=== PATIENT | male | born 2005 | race Caucasian/White ===

== ENCOUNTER 2025-06-05 13:00 | Outpatient (AMB) | payer OTHER, SELFPAY ==
--- NOTE | 2025-06-05 13:10 | A.OFFPC_ITS ---
Vital Signs 06/05/25 13:22 Height 5 ft 9 in Weight 304 lb BMI 44.9 BP 146/68 H Blood Pressure Location Rt brachial Position Sitting Respiration 18 Pulse 94 Pulse Source Pulse Oximeter Temp 97.3 F Temp Source Temporal Artery Scan Pulse Oximetry (%) 98 Oxygen Delivery Method Room Air Intake Visit Reasons: establish care Second Rigger Required: No Accompanied by: Self / Same As Patient Allergies permethrin Allergy (Severe, Verified 06/05/25 13:37) Hives cat dander (cats) Allergy (Mild, Verified 06/05/25 13:37) Itching amoxicillin Adverse Reaction (Severe, Verified 06/05/25 13:37) Swelling loratadine (From Claritin) Adverse Reaction (Mild, Verified 06/05/25 13:37) Swelling trees Adverse Reaction (Mild, Uncoded 06/05/25 13:37) Itching Medication List - Last Reconciled 06/05/25 by ISIDORO Lal cetirizine (Zyrtec) 10 mg PO DAILY PRN Tobacco use date assessed: 06/05/25 Dental Screening Dental Screen Date: 06/05/25 Did you have a dental visit in the last 12 months?: Yes Did you have a dental problem in the last 6 months where you did not have access to dental care?: No Was dental information given to patient?: Patient has dentist HPI establish care HPI Details Previous PCP:[facility] Last visit:Within the last six months Last PE: About a year ago Specialist: no OBGYN:n/a Past medical history: Medications: Family HX: Problem: The patient is a 19-year-old male presenting to establish care with a new primary care physician after 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 His last visit with his data center solutions architect was within the last six months, his last physical was over a year ago, and his last blood work was a few years ago. The patient reports developing congestion and postnasal drip with green sputum for the last 3-4 days. These symptoms started a few days after he returned from a cruise about a week ago. He denies any associated sinus pain. Past medical history is significant for asthma as a child, though he has not had issues in a long time. He denies any other known medical history and does not see any specialists. He has known allergies to amoxicillin and permethrin. The patient cannot recall any significant family medical history but plans to ask his parents. [facility] Medical History (Updated 06/06/25 @ 12:13 by ISIDORO Lal) History of asthma Social History Alcohol intake: never Patient Tobacco Use Status: Never used Tobacco e-Cigarette/Vaping Use: Never Used Current occupational status: employed Current occupation: [employer] Cognitive needs: No Hearing needs: No Vision needs: Yes Questionnaire PHQ-9 Over the last 2 weeks, how often have you been bothered by any of the following problems? 1. Little interest or pleasure in doing things: not at all 2. Feeling down, depressed, or hopeless: not at all 3. Trouble falling or staying asleep, or sleeping too much: not at all 4. Feeling tired or having little energy: not at all 5. Poor appetite or overeating: not at all 6. Feeling bad about yourself - or that you are a failure or have let yourself or your family down: not at all 7. Trouble concentrating on things, such as reading the newspaper or watching television: not at all 8. Moving or speaking so slowly that other people could have noticed. Or the opposite - being so fidgety or restless that you have been moving around a lot more than usual: not at all 9. Thoughts that you would be better off or of hurting yourself in some way: not at all Total score: 0 Source: Developed by Drs. Azam Oconnell, Shannon King, J Luis Wong and colleagues, with an educational miracle from [employer]. Thrive Questionnaire I am a: Patient What is your living situation today?: I have a steady place to live Within the past 12 months, did the food you bought not last and you didn't have the money to get more?: Never true Within the past 12 months, did you worry whether your food would run out before you got money to buy more?: Never true Do you have trouble paying for medicines?: No Do you have trouble getting transportation to medical appointments?: No Do you have trouble paying your heating and electricity bill?: No Do you have trouble taking care of your child, family member or friend?: No Do you have trouble with day-to-day activities such as bathing, preparing meals, shopping, managing finances, etc.?: No Are you currently unemployed and looking for a job?: No Are you interested in more education?: Yes Please select the resources that you would like help with: None Currently or been in a relationship where the following occur: No concerns reported THRIVE Score: 0 AUDIT C Alcohol Use Questionnaire (AUDIT-C) 1. How often do you have a drink containing alcohol?: Never Total Score: 0 LASHAY-7 AMB Questionnaire LASAHY-7 Feeling nervous, anxious, or on edge: 0 = Not at all Not being able to stop or control worryin = Not at all Worrying too much about different things: 0 = Not at all Trouble relaxin = Not at all Being so restless that it is hard to sit still: 0 = Not at all Becoming easily annoyed or irritable: 0 = Not at all Feeling afraid as if something awful might happen: 0 = Not at all Total LASHAY-7 score (0-4 normal; 5-9 mild; 10-14 moderate; 15-21 severe): 0 Source: Developed by Drs. Azam Oconnell, Shannon King, J Luis Wong and colleagues, with an educational miracle from [employer]. Review of Systems Const Denies headache(s) Eyes Denies loss of vision ENT Denies vertigo, Denies dizziness, Denies headache(s), Reports nasal congestion, Reports nasal discharge (greenish) and Denies sore throat Card Denies chest pain, Denies leg edema and Denies lightheadedness Resp Denies cough, Denies hemoptysis and Denies wheezing GI Denies abdominal pain, Denies melena, Denies constipation, Denies diarrhea and Denies vomiting Denies dysuria, Denies urinary frequency and Denies urinary urgency Musc Denies arthralgias, Denies joint swelling, Denies numbness and Denies tingling Neuro Denies Abnormal speech present, Denies behavioral changes, Denies vertigo, Denies dizziness, Denies headache(s), Denies loss of vision, Denies memory loss, Denies numbness and Denies tingling Psych Denies anxiety, Denies behavioral changes, Denies depression, Denies memory loss and Denies panic attacks Mike/Lymph Denies easy bleeding and Denies easy bruising Aller/Immun Denies wheezing Physical exam (Primary Care) Vital Signs: Last Vital Signs Temp 97.3 F 06/05/25 13:22 Pulse 94 06/05/25 13:22 Resp 18 06/05/25 13:22 BP 146/68 H 06/05/25 13:22 Pulse Ox 98 06/05/25 13:22 Oxygen Delivery Method Room Air 06/05/25 13:22 BMI result Body Mass Index 44.9 Tobacco/Smoking Status: Tobacco use Status Tobacco use date assessed 06/05/25 06/05/25 13:36 Patient Tobacco Use Status Never used Tobacco 06/05/25 13:36 e-Cigarette/Vaping Use Never Used 06/05/25 13:36 PHQ-9: PHQ-9 Score PHQ-9: Total score 0 06/05/25 13:43 Currently or been in a relationship where the following occur: No concerns reported Const General: healthy appearing, no acute distress, alert and awake Nutritional Appearance: well nourished and obese Orientation/consciousness: oriented to person, oriented to place and oriented to time HENMT Ears: TM's normal bilaterally General nose exam: Abnormal mucous membranes and turbinates present boggy and erythematous and Nasal discharge present purulent on the left Mouth: tongue abnormal geographic Eyes Conjunctivae: conjunctivae normal Sclerae: sclerae normal Pupils: Equal, round and reactive pupils present Neck Neck: Yes no lymphadenopathy and Yes no JVD Thyroid: Thyroid normal Carotids: no bruits Resp Effort & Inspection: normal respiratory effort and not tachypneic Auscultation: no crackles, no rales, no rhonchi and no wheezes Cardio Rate: regular rate Rhythm: regular rhythm Heart sounds: no murmurs and normal S1 and S2 GI Inspection: Yes obesity Palpation (GI): Soft to palpation, nontender, no hepatomegaly and no splenomegaly Auscultation: normal bowel sounds General: Yes no CVA tenderness Back/Spine/Pelvis Back: no CVA tenderness Skin General skin exam: no rashes or lesions noted and dry skin Neuro General: oriented to person, oriented to place and oriented to time Cranial nerves: Yes Equal, round and reactive pupils present Speech: No Abnormal speech present Gait exam (Neuro): Normal gait present Motor exam (neuro): no tremor noted Extrem Right upper extremity: full ROM Left upper extremity: full ROM Right lower extremity: full ROM; no edema Left lower extremity: full ROM; no edema Psych Mental Status: mental status grossly normal Speech and movement: Normal speech and movement present Affect: normal affect Attitude: cooperative Thought process: Normal thought process present Coding Level of Care Code New Pt Level 4 (64416) Diagnoses Encounter for medical examination to establish care Z00.00 Rhinosinusitis J31.0; J32.9 Morbid obesity E66.01 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 Fasting lab work, including electrolytes, kidney and liver function, cholesterol, and b lood sugar, will be ordered. A follow-up appointment will be scheduled for a complete physical examination and to review the lab results. The patient will need to fast for 8 to 12 hours prior to the blood draw. (2) Rhinosinusitis: Code(s): J31.0 - Chronic rhinitis; J32.9 - Chronic sinusitis, unspecified Category: Medical Plan: The patient's report of green sputum for 3-4 days and physical exam findings of inflamed sinus passages and post-nasal drip are indicative of a bacterial sinus infection. Due to a stated allergy to amoxicillin, a course of azithromycin will be prescribed. The dosing will be 500 mg on the first day, followed by 250 mg for the subsequent days. (3) Morbid obesity: Code(s): E66.01 - Morbid (severe) obesity due to excess calories Category: Medical Plan: Encouraged to exercise for at least 30 minutes a day/5 days a week Healthy eating discussed. Encouraged to eat fruits/vegetables, protein- fish/baked chicken, and to avoid salty/fried foods, sweets, caffeine and carbohydrates. 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 Since antibiotics can cause or exacerbate thrush, treatment will be deferred until after the antibiotic course for his sinus infection is complete. The condition will be re-evaluated at the follow-up visit, at which time an antifungal swish and swallow medication may be considered if the condition has not resolved. Orders: Orders Complete Blood Count Auto Diff 06/05/25. - Encounter for general adult medical examination without abnormal findings Comprehensive Sunset. Panel Fast 06/05/25. - Encounter for general adult medical examination without abnormal findings Vitamin D 25-OH Total 06/05/25. - Encounter for general adult medical examination without abnormal findings UA CC w/rflx Micro + Cult 06/05/25. - Encounter for general adult medical examination without abnormal findings TSH reflex Free T4 06/05/25. - Encounter for general adult medical examination without abnormal findings Lipid Panel 06/05/25. - Encounter for general adult medical examination without abnormal findings Medications: New azithromycin For 250 mg dose pack: take 500 mg today (day 1), then 250 mg for 4 days (days 2-5) PO 6 tabs 0RF
[2025-06-05 13:22] VITALS: BP 146/68; PULSE 94; RESP 18; TEMP 36.3; O2SAT 98; BMI 44.9
--- OUTSIDE RECORDS SUMMARY | 2025-06-05 16:29 | XMS_ITS | Clinical Summary ---
Author Organization [facility] Address [address] [place] [id number] Phone Care Team Providers Care Towerman Name Role Phone Billy Barboza MD Primary Care Provider [phone] Allergies Active Allergy Reactions Criticality Noted Date Comments Amoxicillin Swelling Environmental 06/03/2017 Dust mites, Garrison tree, cats- tested positive for skin test Permethrin Rash Low Medications cetirizine (ZYRTEC ALLERGY) 10 MG tabletIndicatio ns:Urticaria Take 1 tablet (10 mg total) by mouth nightly as needed for allergies. 30 tablet 1 06/03/2017 Active escitalopram 10 MG tabletIndicatio ns:Current severe episode of major depressive disorder without psychotic features without prior episode TAKE 1 TABLET(10 MG) BY MOUTH EVERY MORNING 90 tablet 04/07/2025 Active Active Problems Problem Noted Date Diagnosed Date Current severe episode of ma renetta depressive disorder without psychotic features without prior episode 12/12/2024 Overview (01/23/2025): 12/01/2024 9:49 AM PHQ9 Screen(s) 12/01/24 startt escitalopram 5 -> 10 mg 12/22/24 good tolerance and some early response to escitalopram No SI Continue at 10 mg Assessment & Plan (01/17/2025 9:55 AM EDT): Doing well on escitalopram 10 mg, feels mood is much better. No side effects or SI. Sleeping well, and somewhat more than before. No change in appetite. Sweating increase 12/12/2024 Vitamin D deficiency 04/28/2019 Overview (04/28/2019): Likely secondary to dietary intake and lack of activity outdoors. Will supplement with 2000U daily x 3 months. Would like to recheck ~08/2019. Assessment & Plan (11/13/2020 1:58 PM EDT): Takes supplement during winter months. Advised to continue unless he gets 20- 30min of outdoor time daily Assessment & Plan (04/28/2019 4:27 PM EDT): Likely secondary to dietary intake and lack of activity outdoors. Will supplement with 2000U daily x 3 months. Would like to recheck ~08/2019. Attention deficit hyperactivity disorder, combin ed type 06/19/2015 Assessment & Plan (05/19/2022 11:16 AM EDT): He feels he does not need tx. Assessment & Plan (11/13/2020 1:55 PM EDT): Still has some attention problems, executive function problems. Not on medication BMI 40.0-44.9, adult 06/19/2015 Overview (05/10/2023): IMO LOAD Assessment & Plan (04/28/2019 4:23 PM EDT): Discussed diet and exercise. Assessment & Plan (08/18/2018 11:33 AM EST): Will check BMI labs today as we are doing blood draw for other reasons. Environmental and seasonal allergies 05/02/2015 Assessment & Plan (09/09/2021 4:14 PM EST): Ongoing congestion likely due to cat dander and/or dust mites in bedroom Recommend the following-- Allergy-- environmental controls Allergy-proof bedroom Remove carpet if possible or vacuum twice/week if wall to wall. No humidifiers. Pillows, comforter and stuffed animals into hot dryer once/week for 20 min to kill dust mites. Aller-ease covers for mattress and pillow. Keep pets out of bedroom. Trial of Flonase 1 spray to each nostril daily at night Assessment & Plan (11/13/2020 1:58 PM EDT): Uses cetirizine prn Encounters Date Type Department Care Team Description 04/07/2025 Refill [facility] - [address], [address] [place] [address] Billy Barboza MD Current severe episode of major depressive disorder without psychotic features without prior episode from Last 3 Months Immunizations Immunization Administration Dates Next Due DTaP 12/11/2008,06/02/2006 DTaP / Hep B / IPV 06/03/2005,04/01/2005, 005 HPV Vaccine 9 Valent 12/17/2017,12/16/2016 Hep A, ped/adol 11/13/2020,04/28/2019 Hep B, ped/adol 2004 Hib (PRP-T) 03/03/2006, 5,04/01/2005,01/28 IPV 12/11/2008 Influenza 04/30/2009, 7,06/02/2006,07/06,06/03/2005 Influenza, injectable, quadr ivalent, preservative free 05/13/2022,05/25/2020,04/28/2019,06/19,05/18/2014 Influenza, injectable, trivalent 06/01/2012,12/0 10/2009,06/11/2010 MMR 12/12/2009,03/03/2006 Meningococcal Conj (Menactra) MCV4P 04/18/2021,0 12/16/2016 Pneumococcal Conjugate 03/03/2006,2004,04/01/2005,01/28 Pneumococcal Conjugate 13-Valent 12/12/2009 Pneumococcal Polysaccharide 10/24/2008 Tdap 12/16/2016 Varicella 12/12/2009,11/26/2005 Family History Relation Name Status Comments Father Alive Father: ADD, de pression, substance abuse Mother Alive Mother: asthma, depression, anxiety Other 1 Alive Other 2 Alive ADD, depression , substance abuse Other 3 Alive asthma, depress ion, anxiety Social History Tobacco Use Types Packs/Day Years Used Date Smoking Tobacco: Never Smokeless Tobacco: Never Tobacco Cessation:Counseling Given: Not Answered Alcohol Use Standard Drinks/Week Comments Never 0 (1 standard drink = 0.6 oz pur e alcohol) Hunger/Food Answer Date Recorded In the last 12 months, did y ou or your family ever eat less than you felt you should because there wasn't enough money for food? No 12/01/2024 Stable Housing Answer Date Recorded Are you worried that in the next 2 months you may not have stable housing? No 12/01/2024 Transportation Concerns Answer Date Rec orded In the last 12 months, have you or your family ever had to go without healthcare because you didn't have a way to get there? No 12/01/2024 Hazards in Home Answer Date Recorded Think about the place you li ve. Do you have problems with any of the following? Pests (mice or roaches), mold, no/not working smoke detectors, water leaks, no window guards. No 2024 Financing Utilities Answer Date Recorde d In the last 12 months, has t he electric, gas, oil, or water company threatened to shut off your services in your home? No 12/01/2024 Safety at Home Answer Date Recorded Are you or your family worried about feeling saf e in your home? No 12/01/2024 Outside Support Answer Date Recorded Do you feel that you need mo re support from other people or programs to help you care for yourself or your family? No 12/01/2024 Understanding Health Concerns Answer Da te Recorded Do you need help understandi ng your or your child's healthcare needs (diagnosis, medications, plan, etc.)? No 12/01/2024 Financing Health Concerns Answer Date R ecorded In the last 12 months, was t here a time when your child needed to see a doctor or get medications or supplies but could not because of cost? No 12/01/2024 Missing School or Work Answer Date Jair rded Did you or your child miss s chool or work because of a health problem that could have been avoided? No 12/01/2024 Child Education Answer Date Recorded Do you have concerns about y our/your child's learning or behavior in school, preschool, or daycare? No 12/01/2024 Sex and Gender Information Value Date Recorded Sex Assigned at Male 12/12/2024 3:17 PM EDT Legal Sex Male 9:40 AM EST Gender Identity Male 09/12/2020 1:20 PM EST Sexual Orientation Straight 05/19/2022 11 :28 AM EDT Last Filed Vital Signs Vital Sign Reading Time Taken Comments Blood Pressure 129/76 01/17/2025 9:36 AM EDT Pulse 87 01/17/2025 9:36 AM EDT Temperature 37.1 C (98.8 F) 12/01/2024 9:39 AM EDT Respiratory Rate - - Oxygen Saturation 98% 12/01/2024 9:39 AM EDT Inhaled Oxygen Concentration - - Weight 130 kg (286 lb 12.8 oz) 01/17/2025 9:36 A M EDT Height 175.3 cm (5' 9 ) 12/01/2024 9:39 AM EDT Body Mass Index 42.35 12/01/2024 9:39 AM EDT Plan of Treatment Health Maintenance Due Date Last Done Comments Men B Vaccine (1 of 2 - Standard) 2020 Influenza Vaccines (#1) 2025 05/13/20, 05/25/2020, 04/28/2019, Additional history exists COVID-19 Vaccine (3 - 2024-2 6 season) 2025 12/31/2020, 12/10/2020 DTaP,Tdap,and Td Vaccines (7 - Td or Tdap) 12/16/2026 12/16/2016, 12/11/2008, 06/02/2006, Additional history exists Hepatitis B Vaccines Completed 06/03/2005, 04/01/2005, 01/28/2005, Additional history exists HIB Vaccines Completed 03/03/2006, 05/10, 04/01/2005, Additional history exists IPV Vaccines Completed 12/11/2008, 05/10, 04/01/2005, Additional history exists MMR Vaccines Completed 12/12/2009, 03/03/2006 Pneumococcal Vaccine Completed 12/12/2009, 10/24/2008, 03/03/2006, Additional history exists Varicella Vaccines Completed 12/12/2009, 11/26/2005 HPV Vaccines Completed 12/17/2017, 12/16/2016 Hepatitis A Vaccines Completed 11/13/2020, 04/28/20 Meningococcal Vaccine Completed 04/18/2021, 017 Insurance [facility] [employer] [facility] [employer] Care Teams Towerman Relationship Specialty Start Date End Date Billy Barboza MD [address] [place] [id number] PCP - General Pediatrics 08/11/17
--- OUTSIDE RECORDS SUMMARY | 2025-06-05 16:29 | XMS_ITS | Encounter Summary ---
Author Organization [facility] Address [address] [place] [id number] Phone Care Team Providers Care Candle Pourer Name Role Phone Billy Barboza MD Primary Care Provider [phone] Reason for Visit * Reason Onset Date Comments possible parasite exposure 12/27/2022 Encounter Details Date Type Department Care Team (Late st Contact Info) Description 12/27/2022 Refill [facility] - [place] [address] [place] [address] Gregoria Ortiz LPN Exposure to parasitic disease (Primary Dx) Social History Tobacco Use Types Packs/Day Years Used Date Smoking Tobacco: Never Smokeless Tobacco: Never Alcohol Use Standard Drinks/Week Comments Never 0 (1 standard drink = 0.6 oz pur e alcohol) Hunger/Food Answer Date Recorded In the last 12 months, did y ou or your family ever eat less than you felt you should because there wasn't enough money for food? No 05/19/2022 Stable Housing Answer Date Recorded Are you worried that in the next 2 months you may not have stable housing? No 05/19/2022 Transportation Concerns Answer Date Rec orded In the last 12 months, have you or your family ever had to go without healthcare because you didn't have a way to get there? No 05/19/2022 Hazards in Home Answer Date Recorded Think about the place you li ve. Do you have problems with any of the following? Pests (mice or roaches), mold, no/not working smoke detectors, water leaks, no window guards. No 2021 Financing Utilities Answer Date Recorde d In the last 12 months, has t he electric, gas, oil, or water company threatened to shut off your services in your home? No 05/19/2022 Safety at Home Answer Date Recorded Are you or your family worried about feeling saf e in your home? No 05/19/2022 Outside Support Answer Date Recorded Do you feel that you need mo re support from other people or programs to help you care for yourself or your family? No 05/19/2022 Understanding Health Concerns Answer Da te Recorded Do you need help understandi ng your or your child's healthcare needs (diagnosis, medications, plan, etc.)? No 05/19/2022 Financing Health Concerns Answer Date R ecorded In the last 12 months, was t here a time when your child needed to see a doctor or get medications or supplies but could not because of cost? No 05/19/2022 Missing School or Work Answer Date Jair rded Did you or your child miss s chool or work because of a health problem that could have been avoided? No 05/19/2022 Sex and Gender Information Value Date Recorded Sex Assigned at Male 12/12/2024 3:17 PM EDT Legal Sex Male 9:40 AM EST Gender Identity Male 09/12/2020 1:20 PM EST Sexual Orientation Straight 05/19/2022 11 :28 AM EDT documented as of this encounter Miscellaneous Notes * Telephone Encounter - Lara Benítez NP - 12/28/2022 12:57 PM EDT Sounds like the best plan. * Telephone Encounter - Gregoria Ortiz LPN - 12/27/2022 2:44 PM EDT Dad would like to monitor for signs of infection. He will call back prn. * Telephone Encounter - Lara Benítez NP - 12/27/2022 10:09 AM EDT Yosi has permethrin on his allergy list. Please check in with parent. Maybe better just to watch him for signs of infection? * Telephone Encounter - Gregoria Ortiz LPN - 12/27/2022 9:38 AM EDT Lucero, our dog was recently diagnosed with mange and the vet said we should ask you for a prescription for 5% permethrin cream for our 3 children, Samia, Sury, and Yosi, as a precaution to make sure that the entire household is disinfected/treated. If someone could contact us at their earliest convenience that would be greatly appreciated. Thanks. Neptali An [phone] documented in this encounter Plan of Treatment Not on file documented as of this encounter Visit Diagnoses Diagnosis Exposure to parasitic disease- Primary documented in this encounter Care Teams Candle Pourer Relationship Specialty Start Date End Date Billy Barboza MD [address] [place] [id number] PCP - General Pediatrics 08/11/17 documented as of this encounter
--- OUTSIDE RECORDS SUMMARY | 2025-06-05 16:29 | XMS_ITS | Encounter Summary ---
Author Organization [facility] Address [address] [place] [id number] Phone Care Team Providers Care Outreach Liaison Name Role Phone Billy Barboza MD Primary Care Provider [phone] Encounter Details Date Type Department Care Team (Late st Contact Info) Description 03/17/2017 Conversion Encounter [facility] - [address], [address] [place] [address] Billy Barboza MD [address] [place] [address] Social History Tobacco Use Types Packs/Day Years Used Date Smoking Tobacco: Never Assessed Sex and Gender Information Value Date Recorded Sex Assigned at Male 12/12/2024 3:17 PM EDT Legal Sex Male 9:40 AM EST Gender Identity Male 09/12/2020 1:20 PM EST Sexual Orientation Straight 05/19/2022 11 :28 AM EDT documented as of this encounter Plan of Treatment Not on file documented as of this encounter Visit Diagnoses Not on filedocumented in this encounter Care Teams Outreach Liaison Relationship Specialty Start Date End Date Billy Barboza MD [address] [place] [address] PCP - General Pediatrics 08/11/17 documented as of this encounter
== END 2025-06-05 14:00 | disposition home or self-care (01) ==
LOC: HO.HMCH 13:02
DX: J31.0 Chronic rhinitis (principal); E66.01 Morbid (severe) obesity due to excess calories; Z68.41 Body mass index [BMI] 40.0-44.9, adult; J32.9 Chronic sinusitis, unspecified; K14.1 Geographic tongue